=== PATIENT | male | born 1990 | race African-American/Black ===

== ENCOUNTER 2021-06-25 15:34 | Emergency (ER) | payer OTHER ==
[~2021-06-25] VITALS: Ht 175.3 cm; Wt 127.0 kg
[2021-06-25 16:26] LABS: CALCIUM 9.3 mg/dL (8.5-10.1); CREATININE 1.6 mg/dL (0.7-1.3)
[2021-06-25 16:32] LABS: ALBUMIN 4.1 g/dL (3.4-5.0); TOTAL BILIRUBIN 0.4 mg/dL (0.2-1.0); TOTAL PROTEIN 7.7 g/dL (6.4-8.2)
[2021-06-25] MEDS ORDERED: ZOFRAN ODT4 MG PO (17:03)
[2021-06-25 17:16] VITALS: BP 123/79
--- NOTE | 2021-06-26 12:05 | EKG ---
[address] [place] [employer] [place] [address] ELECTROCARDIOGRAM REPORT Name: GRACIELAABRAHAM Sofia JR GRACE Room #: [facility]P [id number] Admission: 06/25/21 Attend Phys: Discharge: 06/25/21 Date of : 89 Report #: [id number] [facility] ED Test Date: 2021-06-25 Test Time: 15:50:42 Pat Name: ABRAHAM LECHUGA Department: Room: Gender: Computer Specialist: CASSIDY : 1990 Requested By: Jason Pulido Order Number: [id number] MD: Roel Kwok Measurements Intervals [place] Rate: 79 P: 46 PA: 193 QRS: 68 QRSD: 90 T: 19 QT: 364 QTc: 418 Interpretive Statements Sinus rhythm Probable left atrial enlargement No previous ECG available for comparison Electronically Signed On 06-26-2021 12:04:39 BARREL CHARRER by Roel Kwok [email or web address] <ELECTRONICALLY SIGNED> By: Roel Kwok MD 06/26/21 1204 1550 1550 Roel Kwok MD /EPI
== END 2021-06-25 17:16 | disposition home or self-care (01) ==
LOC: ER 15:34
PROVIDERS: Emergency Medicine
DX: S06.0X0A Concussion without loss of consciousness, initial encounter (principal); W01.198A Fall on same level from slipping, tripping and stumbling with subsequent striking against other object, initial encounter; Y93.61 Activity, american tackle football; Y92.89 Other specified places as the place of occurrence of the external cause; Y99.9 Unspecified external cause status